=== PATIENT | male | born 1935 | race Caucasian/White ===

== ENCOUNTER 2024-01-28 02:53 | Observation (INO) | payer MEDICARE ==
[~2024-01-28] VITALS: Ht 182.9 cm; Wt 122.0 kg
[2024-01-28] MEDS: METOPROLOL TARTRATE 1 MG/ML 5ML VIAL IV ONE ×2 (03:01→03:02)
[2024-01-28] MEDS: NITROGLYCERIN 1GM OINT 1 INCH/1GM TD ONE (03:06)
[2024-01-28] MEDS: ASPIRIN 325MG TAB PO ONE (03:06)
[2024-01-28] MEDS: LORAZEPAM 2 MG/ML 1 ML VIAL IVP ONE (03:12)
[2024-01-28 03:17] LABS: BASOPHILS # (AUTO) 0.08 K/uL (0.00-0.20); BASOPHILS % (AUTO) 0.9 % (0.0-5.0); EOSINOPHILS # (AUTO) 0.38 K/uL (0.00-0.70); EOSINOPHILS % (AUTO) 4.1 % (0.0-8.0); HEMATOCRIT 43.2 % (42-54); IMMATURE GRANULOCYTE ABSOLUTE 0.04 K/uL (0-1); LYMPHOCYTES # (AUTO) 2.6 K/uL (1.0-4.8); LYMPHOCYTES % (AUTO) 27.7 % (21.0-51.0); MEAN CORPUSCULAR HEMOGLOBIN 28.9 pg (27.0-33.0); MEAN CORPUSCULAR HGB CONC 32.4 g/dL (32.0-36.0); MEAN CORPUSCULAR VOLUME 89.3 fL (79-99); MONOCYTES # (AUTO) 1.3 K/uL (0.1-1.0); MONOCYTES % (AUTO) 13.3 % (3.0-13.0); NEUTROPHILS % (AUTO) 53.6 % (40.0-77.0); PLATELET COUNT (AUTO) 263 K/uL (130-400); RED BLOOD CELL COUNT(AUTO) 4.84 MIL/uL (4.50-6.20); RED CELL DISTRIBUTION WIDTH 13.2 % (11.0-15.5); WHITE BLOOD COUNT (AUTO) 9.4 K/uL (4.8-10.8)
[2024-01-28 03:18] LABS: CARBON DIOXIDE 29 mmol/L (21-32); CHLORIDE 103 mmol/L (101-111); CREATININE 1.4 mg/dL (0.5-1.5); GLOMERULAR FILTR. RATE CALC 49 mL/min (>90); GLUCOSE,RANDOM 129 mg/dL (70-105); POTASSIUM 3.9 mmol/L (3.5-5.1); SODIUM SERUM 141 mmol/L (136-145); UREA NITROGEN, BLOOD 20 mg/dL (7-18)
[2024-01-28 03:31] LABS: ALCOHOL, BLOOD < 3 mg/dL (0-10); THYROID STIMULATING HORMONE 5.53 uIU/mL (0.36-3.74)
[2024-01-28 03:40] LABS: B-TYPE NATRIURETIC PEPTIDE 420 pg/mL (0-100)
[2024-01-28] MEDS: FUROSEMIDE 40MG VIAL IV ONE (03:45)
[2024-01-28] MEDS: DILTIAZEM 25MG INJ IVP ONE (03:46)
[2024-01-28] MEDS: DILTIAZEM 125MG+100 ML NS 125 ML IV ONE (04:34)
[2024-01-28] MEDS: DILTIAZEM 125 MG/25 ML INJ 125 MG in 0.9%NACL 100ML 100 ML IV SCH (04:49)
[2024-01-28 04:56] LABS: PARTIAL THROMBOPLASTIN TIME 26.9 SEC (26.3-35.5)
[2024-01-28] MEDS ORDERED: ONDANSETRON 4MG INJ IV PRN (05:00)
[2024-01-28] MEDS ORDERED: MAGNESIUM 2GM PREMIX 50ML 50 ML IV PRN (05:00)
[2024-01-28] MEDS ORDERED: GUAIFENESIN-DM 200/20 MG 10 ML PO PRN (05:00)
[2024-01-28] MEDS: HEPARIN 5,000 UNIT VIAL IV PRN (05:00)
[2024-01-28] MEDS ORDERED: ACETAMINOPHEN 325 MG TAB PO PRN ×2 (05:00)
[2024-01-28] MEDS ORDERED: HEPARIN 5,000 UNIT VIAL SQ SCH (05:00)
[2024-01-28] MEDS ORDERED: POTASSIUM CHLORIDE 10MEQ/100ML 100 ML IV PRN (05:00)
[2024-01-28 05:03] LABS: HEMOGLOBIN A1C 6.2 % (4.0-6.0)
[2024-01-28] MEDS: HEPARIN 25,000 UNITS/250ML D5W 250 ML IV SCH (05:04)
[2024-01-28 05:11] LABS: INR 0.97 (0.85-1.15); PROTHROMBIN TIME 11.5 SEC (9.6-11.6)
[2024-01-28] MEDS ORDERED: OMEP20CA12 PO (05:53)
[2024-01-28 06:00] VITALS: O2SAT 97
[2024-01-28] MEDS ORDERED: VITAMIN D3 (06:18)
[2024-01-28 06:29] VITALS: BP 124/50; PULSE 67; RESP 20
[2024-01-28 06:56] LABS: EOSINOPHILS # (AUTO) 0.26 K/uL (0.00-0.70); EOSINOPHILS % (AUTO) 2.7 % (0.0-8.0); HEMATOCRIT 38.9 % (42-54); IMMATURE GRANULOCYTE ABSOLUTE 0.05 K/uL (0-1); LYMPHOCYTES # (AUTO) 1.8 K/uL (1.0-4.8); LYMPHOCYTES % (AUTO) 18.4 % (21.0-51.0); MEAN CORPUSCULAR HEMOGLOBIN 29.2 pg (27.0-33.0); MEAN CORPUSCULAR HGB CONC 32.4 g/dL (32.0-36.0); MONOCYTES # (AUTO) 1.1 K/uL (0.1-1.0); MONOCYTES % (AUTO) 11.8 % (3.0-13.0); NEUTROPHILS # (AUTO) 6.2 K/uL (1.8-7.7); NEUTROPHILS % (AUTO) 65.6 % (40.0-77.0); PLATELET COUNT (AUTO) 263 K/uL (130-400); RED BLOOD CELL COUNT(AUTO) 4.32 MIL/uL (4.50-6.20); RED CELL DISTRIBUTION WIDTH 13.3 % (11.0-15.5); WHITE BLOOD COUNT (AUTO) 9.5 K/uL (4.8-10.8)
[2024-01-28 08:30] VITALS: BP 127/79; PULSE 72; RESP 18
[2024-01-28] MEDS: FAMOTIDINE 20MG TAB PO SCH (09:45)
[2024-01-28] MEDS: METOPROLOL TARTRATE 25 MG TAB PO SCH (09:45)
[2024-01-28] MEDS: FUROSEMIDE 40MG VIAL IVP SCH (09:45)
[2024-01-28 10:00] VITALS: O2SAT 95
[2024-01-28] MEDS ORDERED: METO-391 PO (11:34)
[2024-01-28] MEDS ORDERED: FURO20TA4 PO (11:34)
[2024-01-28] MEDS ORDERED: APIX5TAB PO (11:34)
[2024-01-28 11:42] LABS: INR 1.05 (0.85-1.15); PROTHROMBIN TIME 12.3 SEC (9.6-11.6)
[2024-01-28 12:42] VITALS: BP 123/79; PULSE 69; RESP 18
[2024-01-28 13:03] LABS: PARTIAL THROMBOPLASTIN TIME > 139.0 SEC (26.3-35.5)
[2024-01-28] MEDS ORDERED: APIXABAN 5 MG TABLET PO SCH (21:00)
[2024-01-29] MEDS ORDERED: FUROSEMIDE 20 MG TABLET PO SCH (09:00)
[2024-01-29] MEDS ORDERED: METOPROLOL SUCCINATE 50 MG TAB.SR.24H PO SCH (09:00)
== END 2024-01-28 16:45 | disposition home or self-care (01) ==
LOC: EDH 02:53 → EDHIP 04:34 → INTOOBSV 04:34 → 2DH 04:49
PROVIDERS: ADMIT Internal Medicine; ATTEND Internal Medicine
DX: I48.20 Chronic atrial fibrillation, unspecified (principal); J96.01 Acute respiratory failure with hypoxia; I11.0 Hypertensive heart disease with heart failure; I50.31 Acute diastolic (congestive) heart failure; R60.1 Generalized edema; E03.9 Hypothyroidism, unspecified; E66.9 Obesity, unspecified; R73.9 Hyperglycemia, unspecified; G47.00 Insomnia, unspecified; E87.70 Fluid overload, unspecified; K21.9 Gastro-esophageal reflux disease without esophagitis; I45.10 Unspecified right bundle-branch block; Z87.891 Personal history of nicotine dependence; Z68.36 Body mass index [BMI] 36.0-36.9, adult; Z79.899 Other long term (current) drug therapy; Z85.46 Personal history of malignant neoplasm of prostate
CPT/HCPCS: 96376; 96366; 96368; 99285; 83036; 84443; 83735; 84484 ×2; 80061; 80048; 83880; 85025 ×2; 85610 ×2; 85730 ×2; 84439; 84481; 36415; 71045; 93306; 96365; 96375; 93005 ×2; G0378 ×3; J3490 ×5; J2060; J1644 ×2; J1940 ×2

== ENCOUNTER → 2024-02-11 | Outpatient (CLI) | payer OTHER ==
[~2024-02-11] MED LIST: APIX5TAB PO; FURO20TA4 PO; METO-391 PO; OMEP20CA12 PO; VITAMIN D3
== END | disposition home or self-care (01) ==
LOC: RAH 12:31
PROVIDERS: ATTEND Internal Medicine Cardiovascular Disease
DX: Z13.6 Encounter for screening for cardiovascular disorders (principal); R93.1 Abnormal findings on diagnostic imaging of heart and coronary circulation
CPT/HCPCS: 75571